=== PATIENT | female | born 1995 | race Caucasian/White ===

== ENCOUNTER 2019-09-11 17:43 | Emergency (ER) | payer OTHER ==
[~2019-09-11] VITALS: Ht 162.6 cm; Wt 56.3 kg
[2019-09-11 17:50] VITALS: BP 122/98
--- NOTE | 2019-09-11 18:11 | NUR ---
Flu-like s/s x 2 wks. Not improving, concerned about covid-19. Went to [place] earlier this month. 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 Eupneic, NAD at this time. Placed on continous SPO2 monitor, CXR pending. Pt aware of POC.
--- NOTE | 2019-09-11 18:43 | NUR ---
Pt c/o urinary s/s. Urine obtained & sent. Delay on d/c due to add'l testing.
[2019-09-11 18:56] LABS: HCG UR SG 1.033 (1.003-1.030); MICROSCOPIC INDICATED
--- NOTE | 2019-09-11 19:45 | NUR ---
Patient given discharge instructions and they have confirmed that they understand the instructions. Patient ambulatory with steady gait.
== END 2019-09-11 20:09 | disposition home or self-care (01) ==
LOC: ED 18:15
DX: N76.0 Acute vaginitis (principal); Z20.828 Contact with and (suspected) exposure to other viral communicable diseases; B34.9 Viral infection, unspecified; R50.9 Fever, unspecified; R06.00 Dyspnea, unspecified; R00.0 Tachycardia, unspecified
CPT/HCPCS: 71045; 81001; 81025; 87086; 99284

== ENCOUNTER 2019-09-12 03:09 | Emergency (ER) | payer OTHER ==
--- NOTE | 2019-09-12 03:44 | NUR ---
MD PRESENT DURING TRIAGE AND EXPLAINED IN DETAIL HER STABLE CONDITION AND BEING OKAY FOR DC. PT HAD MANY QUESTIONS WHICH HE ANSWERED ALL. UPON DC PT ALSO HAD MANY QUESTIONS. ANSWERS GIVEN FOR ALL. PT ASKING OVER AND OVER AGAIN TO BE ADMITTED. PT WAS EXPLAINED THIS IS NOT NECESSARY. PT ENCOURAGED TO RETURN AT ANY TIME.
[2019-09-12 03:46] VITALS: BP 122/74
== END 2019-09-12 03:47 | disposition home or self-care (01) ==
LOC: ED 03:44
DX: B34.9 Viral infection, unspecified (principal)
CPT/HCPCS: 99281

== ENCOUNTER 2019-09-12 23:27 | Emergency (ER) | payer OTHER ==
[~2019-09-12] VITALS: Ht 162.6 cm; Wt 52.0 kg
[2019-09-13 00:30] LABS: BASOPHILS # (AUTO) 0.04 x10^3/uL (0-0.1); BASOPHILS % (AUTO) 0 % (0-1); EOSINOPHILS # (AUTO) 0.08 x10^3/uL (0-0.4); EOSINOPHILS % (AUTO) 1 % (1-7); LYMPHOCYTES # (AUTO) 2.46 x10^3/uL (1-3.4); LYMPHOCYTES % (AUTO) 25 % (22-44); MD NO; MEAN CORPUSCULAR HEMOGLOBIN 30.1 pg (27.0-34.8); MEAN CORPUSCULAR HGB CONC 33.3 g/dL (32.4-35.8); MEAN CORPUSCULAR VOLUME 90.3 fL (80-100); MEAN PLATELET VOLUME 8.3 fL (7.4-10.4); MONOCYTES # (AUTO) 0.82 x10^3/uL (0.2-0.8); MONOCYTES % (AUTO) 9 % (2-9); NEUTROPHILS # (AUTO) 6.29 x10^3/uL (1.8-6.8); NEUTROPHILS % (AUTO) 65 % (42-75); PLATELET COUNT 353 x10^3/uL (130-400); RED CELL DISTRIBUTION WIDTH 12.5 % (9.6-15.2)
[2019-09-13] MEDS ORDERED: SODIUM CHLORIDE FLUSH 10ML SYR IVF ONE (00:30)
[2019-09-13 00:38] LABS: ALBUMIN 4.6 g/dL (3.4-5.0); ANION GAP 9 mmol/L (5-15); CALCIUM 10.2 mg/dL (8.5-10.1); CHLORIDE 109 mmol/L (98-107); CREATININE 0.88 mg/dL (0.55-1.02)
[2019-09-13 01:44] VITALS: BP 130/82
[2019-09-13] MEDS ORDERED: OMNIPAQUE 350 MG/ML, 100ML BOTTLE ONE (03:36)
== END 2019-09-13 01:46 | disposition home or self-care (01) ==
LOC: ED 23:39
DX: F41.1 Generalized anxiety disorder (principal); R06.00 Dyspnea, unspecified; R50.9 Fever, unspecified
CPT/HCPCS: 36415; 71275; 80048; 82040; 85025; 93005; 99285; Q9967